=== PATIENT | female | born 1945 | race Caucasian/White ===

== ENCOUNTER → 2020-01-14 | Outpatient (CLI) | payer MEDICARE, OTHER ==
[~2020-01-14] MED LIST: ACET325 PO; ACYC200 PO; ALLEGRA; ALLEGRA ALLERG180 M1 PO; ALPR.5CR PO; AMLO10 PO; ATEN25 PO; ATENOLOL; ATOR20 PO; CYAN500 PO; DIOVAN HCT; ERGO400 PO; ESTR2 PO; ESTRODIAL; GABA300 PO; MAGOXI400 PO; METF500 PO; ONDA4ODT MM; PANT40 PO; POTCHL10ER PO; SERT25 PO; SIMV40 PO; VALS80 PO; VYTORIN; [UNRECOGNIZED DRUG - OTHER]
== END ==
LOC: PLD 08:06 → LAB SHORT 08:06
DX: C44.319 Basal cell carcinoma of skin of other parts of face (principal)
CPT/HCPCS: 88305

== ENCOUNTER → 2020-02-10 | Outpatient (CLI) | payer MEDICARE, OTHER | END | disposition home or self-care (01) | LOC: PLD 15:22 → LAB SHORT 15:22 | DX: C44.319 Basal cell carcinoma of skin of other parts of face (principal) | CPT/HCPCS: 88305 ==

== ENCOUNTER 2020-10-15 09:10 | Day surgery (SDC) | payer MEDICARE, OTHER ==
[~2020-10-15] VITALS: Ht 165.1 cm; Wt 94.8 kg
[2020-10-15] MEDS ORDERED: INSULIN AS100 UNIT/8 SC (09:36)
[2020-10-15] MEDS ORDERED: METF500 PO (09:37)
[2020-10-15] MEDS ORDERED: BASAGLAR K100 UNIT/3 SC (09:37)
--- NOTE | 2020-10-15 09:42 | NUR ---
10/15/20 0942 Nevaeh Gaffney ([place] MENSAHET IN AT 0912.
== END 2020-10-15 11:00 | disposition home or self-care (01) ==
LOC: ORSCSDS 09:10
PROVIDERS: Ophthalmology
PROC: 08RK3JZ Replacement of Left Lens with Synthetic Substitute, Percutaneous Approach (ICD-10-PCS; principal; 2020-10-15 10:30)
DX: H25.12 Age-related nuclear cataract, left eye (principal); I10 Essential (primary) hypertension; F17.210 Nicotine dependence, cigarettes, uncomplicated; E11.9 Type 2 diabetes mellitus without complications; Z79.4 Long term (current) use of insulin; Z79.899 Other long term (current) drug therapy
CPT/HCPCS: 82947; J2001; J2250; J3010; J3301; J7040; V2632

== ENCOUNTER → 2021-09-03 | Outpatient (CLI) | payer MEDICARE, OTHER ==
[~2021-09-03] MED LIST changes: +BASAGLAR K100 UNIT/3 SC; +INSULIN AS100 UNIT/8 SC
[2021-09-03 17:18] LABS: Creatinine, Urine Random 61.2 mg/dL (27.00-270.00); Microalb/Creat Ratio UR, Rand 284.314 mg/g (0.000-30.000)
== END | disposition home or self-care (01) ==
LOC: LAB 14:05 → LAB SHORT 14:05
PROVIDERS: Family Medicine
DX: I10 Essential (primary) hypertension (principal); E78.5 Hyperlipidemia, unspecified; E11.65 Type 2 diabetes mellitus with hyperglycemia
CPT/HCPCS: 82043; 82570

== ENCOUNTER → 2021-09-06 | Outpatient (CLI) | payer MEDICARE, OTHER | END | disposition home or self-care (01) | LOC: LAB SHORT 17:08 → LAB 17:08 | DX: R30.9 Painful micturition, unspecified (principal) | CPT/HCPCS: 87077; 87086; 87186 ==

== ENCOUNTER → 2022-05-09 | Outpatient (CLI) | payer MEDICARE, OTHER ==
[2022-05-12 12:10] LABS: HPV 16 Negative (Negative); HPV 18 Negative (Negative); HPV OTHER HR TYPES Negative (Negative)
== END ==
LOC: LAB 10:19 → LAB SHORT 10:19
PROVIDERS: Obstetrics & Gynecology
DX: Z01.419 Encounter for gynecological examination (general) (routine) without abnormal findings (principal)
CPT/HCPCS: 87624; G0145

== ENCOUNTER → 2022-05-09 | Outpatient (CLI) | payer MEDICARE, OTHER | END | disposition home or self-care (01) | LOC: LAB SHORT 13:02 → PLD 13:02 | DX: C54.1 Malignant neoplasm of endometrium (principal) | CPT/HCPCS: 88305; 88342 ==

== ENCOUNTER 2022-08-01 06:05 | Day surgery (SDC) | payer MEDICARE, OTHER ==
[2022-08-01] VITALS (8 sets, daily range): BP systolic 93–150; BP diastolic 67–79
[~2022-08-01] VITALS: Ht 165.1 cm; Wt 87.8 kg
--- NOTE | 2022-08-01 07:26 | NUR ---
Ambulatory in Day Surgery, WITH STEADY GAIT. History, Chart, Medications and Allergies reviewed before start of procedure. Lungs clear T/O to Auscultation. Patient confirms NPO status and agrees with scheduled surgery. Pre-Op teaching done. Pt verbalizes understanding. Patient States Post-Procedure ride home has been arranged WITH [facility].
--- NOTE | 2022-08-01 08:39 | NUR ---
PT WITH ROLL CUTTING OPERATOR TO IMAGING FOR POST OP CHEST XRAY.
--- NOTE | 2022-08-01 08:39 | NUR ---
REPORTED TO ALON [facility], NO POST PROCEDURE XRAY DONE YET.
--- NOTE | 2022-08-01 09:15 | NUR ---
Patient up to Ambulate independently. Gait steady STAND BY ASSIST RELATED TO INCREASED FALL RISK FROM ANESTHESIA. Discharge instructions reviewed with patient. Patient verbalizes understanding. Copy given to patient to take home.ICE PACK GIVEN.PAIN RX IN DISCHARGE FOLDER WITH .DRESSINGS REMAIN CDI. Discharged via wheelchair to private car for ride home WITH
== END 2022-08-01 09:16 | disposition home or self-care (01) ==
LOC: ORSCMMR 06:05 → ORD 07:30 → ORSCMMR 07:30 → ORD 10:00 → ORSCMMR 10:00
PROVIDERS: Surgery
PROC: B543ZZA Ultrasonography of Right Jugular Veins, Guidance (ICD-10-PCS; principal; 2022-08-01 07:30)
PROC: 0JH63WZ Insertion of Totally Implantable Vascular Access Device into Chest Subcutaneous Tissue and Fascia, Percutaneous Approach (ICD-10-PCS; principal; 2022-08-01 07:30)
PROC: 05HM33Z Insertion of Infusion Device into Right Internal Jugular Vein, Percutaneous Approach (ICD-10-PCS; principal; 2022-08-01 07:30)
DX: C54.8 Malignant neoplasm of overlapping sites of corpus uteri (principal); I10 Essential (primary) hypertension; E11.9 Type 2 diabetes mellitus without complications; Z87.891 Personal history of nicotine dependence; K21.9 Gastro-esophageal reflux disease without esophagitis; Z79.4 Long term (current) use of insulin; Z79.899 Other long term (current) drug therapy; Z79.84 Long term (current) use of oral hypoglycemic drugs
CPT/HCPCS: 77001; 82947; 93005; 93010; C1788; J0690; J1100; J1642; J1790; J1885; J2370; J2405; J2704; J3010; J7120

== ENCOUNTER → 2022-11-24 | Outpatient (CLI) | payer MEDICARE, OTHER | END | disposition home or self-care (01) | LOC: LAB SHORT 13:32 → LAB 13:32 | DX: R30.9 Painful micturition, unspecified (principal) | CPT/HCPCS: 87077; 87086; 87186 ==

== ENCOUNTER → 2023-05-22 | Outpatient (CLI) | payer MEDICARE, OTHER ==
[2023-05-22 13:19] LABS: BASOPHILS ABSOLUTE AUTO 0.03 K/mm3 (0.00-0.23); BASOPHILS PERCENT AUTO 0 % (0-2); EOSINOPHILS ABSOLUTE AUTO 0.08 K/mm3 (0.00-0.68); EOSINOPHILS PERCENT AUTO 1 % (0-6); Hematocrit 35.7 % (33.0-51.0); Hemoglobin 11.4 g/dL (11.5-16.0); IMMATURE GRAN ABSOLUTE AUTO 0.01 K/mm3 (0.00-0.10); IMMATURE GRAN PERCENT AUTO 0 % (0-1); LYMPHOCYTES ABSOLUTE AUTO 1.64 K/mm3 (0.84-5.20); LYMPHOCYTES PERCENT AUTO 23 % (21-46); MONOCYTES ABSOLUTE AUTO 0.46 K/mm3 (0.16-1.47); MONOCYTES PERCENT AUTO 6 % (4-13); Mean Corpuscular HGB 28.9 pg (26.0-34.0); Mean Corpuscular HGB Conc 31.9 g/dL (31.5-36.5); Mean Corpuscular Volume 90 fL (80-100); Mean Platelet Volume 10.2 fL (9.1-12.4); NEUTROPHILS ABSOLUTE AUTO 5.03 K/mm3 (1.96-9.15); NEUTROPHILS PERCENT AUTO 70 % (41-73); Platelet Count 213 K/mm3 (150-400); RDW Coefficient Variation 14.2 % (11.7-14.2); RDW Standard Deviation 47.6 fL (35.1-46.3); Red Blood Cell Count 3.95 M/mm3 (3.80-5.20); White Blood Cell Count 7.25 K/mm3 (4.00-11.30)
[2023-05-22 13:32] LABS: Albumin, Blood 3.3 g/dL (3.4-5.0); Bilirubin, Total 0.7 mg/dL (0.1-1.0); Bun/Creatinine Ratio 12.8 (12.0-20.0); Calcium, Blood 8.6 mg/dL (8.5-10.1); Creatinine, Blood 1.17 mg/dL (0.40-1.00); Globulin, Blood 3.3 g/dL (2.2-4.0); Potassium, Blood 4.1 mmol/L (3.5-5.5); Total Protein, Blood 6.6 g/dL (6.4-8.2)
== END | disposition home or self-care (01) ==
LOC: LAB SHORT 13:13
PROVIDERS: Physician Assistant
DX: R10.11 Right upper quadrant pain (principal)
CPT/HCPCS: 80053; 82150; 83690; 85025

== ENCOUNTER 2023-07-03 07:38 | Day surgery (SDC) | payer MEDICARE, OTHER ==
[2023-07-03] VITALS (10 sets, daily range): BP systolic 105–150; BP diastolic 68–91
[~2023-07-03] VITALS: Ht 165.1 cm; Wt 96.3 kg
[~2023-07-03 07:38] MED LIST changes: +ATENOLOL25 MG PO; +CIPR500 PO; +DECADRON4 M1 PO; +HYDR1TAB94; +HYDR1TAB94 PO; +LANTUS SOL100 UNIT/1 SC; +METFORMIN HCL500 M2 PO; +NEURONTIN300 MG; +NYST237S MT; +PANTOPRAZOLE SO40 M2 PO; +Revlimid5 MG PO; +Velcade3.5 MG IV; +ZOLOFT10013 PO; +[UNRECOGNIZED DRUG - OTHER] PO
[2023-07-03] MEDS ORDERED: Lactated Ringer's 1,000 ML IV SCH (07:40)
--- NOTE | 2023-07-03 08:26 | NUR ---
History, Chart, Medications and Allergies reviewed before start of procedure.Patient confirms NPO status and agrees with scheduled surgery. Lungs clear T/O to Auscultation. Patient reports completing Chlorhexadine shower X2 prior to admission to hospital.Patient States Post-Procedure ride home has been arranged.
[2023-07-03] MEDS ORDERED: Lidocaine HCl 1% 30 ML SDV ONE (09:21)
[2023-07-03] MEDS ORDERED: CeFAZolin Sodium 2,000 MG in NS 100 ML IV SCH (09:30)
[2023-07-03] MEDS ORDERED: propofoL 20 ML IV ONE (09:44)
[2023-07-03] MEDS ORDERED: Dexamethasone Sod Phos 10 MG/ML 1ML VIAL ONE (09:44)
[2023-07-03] MEDS ORDERED: Phenylephrine HCl 100 MCG/ML-NS 10MLSYR (1MG/10ML) ONE (09:44)
[2023-07-03] MEDS ORDERED: Rocuronium Bromide 10 MG/ML 5ML Injection IV ONE (09:44)
[2023-07-03] MEDS ORDERED: Ondansetron HCl 2 MG / ML 2ML Vial ONE (09:44)
[2023-07-03] MEDS ORDERED: FentaNYL Citrate 50 MCG/ML 2 ML Injection ONE (09:45)
[2023-07-03] MEDS ORDERED: Sugammadex Sodium 200 MG/2ML SDV (100 MG/ML) ONE (10:19)
[2023-07-03] MEDS ORDERED: HYDROcodone 5-APAP 325 TAB PO PRN (11:35)
--- NOTE | 2023-07-03 12:01 | NUR ---
PT SLIGHTLY UNSTEADY ON FEET. DENIES FEELING DIZZY, STATES " MY LEGS DON'T WORK B/C OF ALL THE FLUID IN THEM". PT ABLE TO TRANSFER TO W/C W/ SB ASSIST AND STATES SHE HAS A CANE FOR BALANCE IN THE CAR. Discharge instructions reviewed with patient. Patient verbalizes understanding. Copy given to patient to take home. Discharged via wheelchair to private car for ride home.
== END 2023-07-03 12:01 | disposition home or self-care (01) ==
LOC: ORSCMMR 07:38 → ORD 09:00 → ORSCMMR 09:00
PROVIDERS: Surgery
PROC: 0JH60WZ Insertion of Totally Implantable Vascular Access Device into Chest Subcutaneous Tissue and Fascia, Open Approach (ICD-10-PCS; principal; 2023-07-03 09:00)
DX: C54.8 Malignant neoplasm of overlapping sites of corpus uteri (principal); I10 Essential (primary) hypertension; K21.9 Gastro-esophageal reflux disease without esophagitis; E11.9 Type 2 diabetes mellitus without complications; E78.5 Hyperlipidemia, unspecified; J45.909 Unspecified asthma, uncomplicated; E66.9 Obesity, unspecified; Z68.35 Body mass index [BMI] 35.0-35.9, adult; Z79.84 Long term (current) use of oral hypoglycemic drugs; Z79.899 Other long term (current) drug therapy; Z87.891 Personal history of nicotine dependence
CPT/HCPCS: 77001; 82947; A9270; C1788; J0690; J1100; J1642; J2371; J2405; J2704; J3010; J7120

== ENCOUNTER 2023-07-28 14:46 | Day surgery (SDC) | payer MEDICARE, OTHER | END 2023-07-28 22:54 | disposition home or self-care (01) | LOC: US 14:46 | DX: C54.8 Malignant neoplasm of overlapping sites of corpus uteri (principal) | CPT/HCPCS: 49083 ==

== ENCOUNTER 2023-08-04 14:39 | Day surgery (SDC) | payer MEDICARE, OTHER | END 2023-08-04 22:35 | disposition home or self-care (01) | LOC: US 14:39 | DX: R18.8 Other ascites (principal); C54.8 Malignant neoplasm of overlapping sites of corpus uteri ==

== ENCOUNTER 2023-09-08 10:34 | Day surgery (SDC) | payer MEDICARE, OTHER | END 2023-09-08 22:41 | disposition home or self-care (01) | LOC: US 10:34 | DX: R18.8 Other ascites (principal); C54.8 Malignant neoplasm of overlapping sites of corpus uteri; Z88.2 Allergy status to sulfonamides | CPT/HCPCS: 49083 ==

== ENCOUNTER 2023-09-15 12:37 | Emergency (ER) | payer MEDICARE, OTHER ==
[~2023-09-15] VITALS: Ht 165.1 cm; Wt 88.5 kg
[2023-09-15] MEDS ORDERED: OCUVITE BLUE L1 EACH (12:50)
[2023-09-15] MEDS ORDERED: ONDA4ODT (12:50)
[2023-09-15] MEDS ORDERED: THERA-D2000 UNIT PO (12:51)
[2023-09-15] MEDS ORDERED: NOVOLOG100 UNIT/2 (12:51)
[2023-09-15] MEDS ORDERED: NS 1,000 ML IV SCH (12:55)
[2023-09-15 13:31] LABS: BASOPHILS ABSOLUTE AUTO 0.02 K/mm3 (0.00-0.23); BASOPHILS PERCENT AUTO 1 % (0-2); EOSINOPHILS ABSOLUTE AUTO 0.01 K/mm3 (0.00-0.68); EOSINOPHILS PERCENT AUTO 0 % (0-6); Hematocrit 30.7 % (33.0-51.0); Hemoglobin 9.8 g/dL (11.5-16.0); IMMATURE GRAN ABSOLUTE AUTO 0.03 K/mm3 (0.00-0.10); IMMATURE GRAN PERCENT AUTO 1 % (0-1); LYMPHOCYTES PERCENT AUTO 20 % (21-46); MONOCYTES PERCENT AUTO 5 % (4-13); Mean Corpuscular HGB 28.5 pg (26.0-34.0); Mean Corpuscular HGB Conc 31.9 g/dL (31.5-36.5); Mean Corpuscular Volume 89 fL (80-100); Mean Platelet Volume 9.8 fL (9.1-12.4); NEUTROPHILS ABSOLUTE AUTO 2.97 K/mm3 (1.96-9.15); NEUTROPHILS PERCENT AUTO 74 % (41-73); Platelet Count 382 K/mm3 (150-400); RDW Coefficient Variation 18.6 % (11.7-14.2); RDW Standard Deviation 58.3 fL (35.1-46.3); Red Blood Cell Count 3.44 M/mm3 (3.80-5.20); White Blood Cell Count 4.03 K/mm3 (4.00-11.30)
[2023-09-15 13:55] LABS: Albumin, Blood 1.5 g/dL (3.4-5.0); Albumin/Globulin Ratio 0.3 (0.8-1.8); Bilirubin, Total 0.5 mg/dL (0.1-1.0); Bun/Creatinine Ratio 20.3 (12.0-20.0); Calcium, Blood 8.5 mg/dL (8.5-10.1); Creatinine, Blood 1.43 mg/dL (0.40-1.00); Globulin, Blood 4.4 g/dL (2.2-4.0); Magnesium, Blood 1.6 mg/dL (1.6-2.4); Potassium, Blood 4.3 mmol/L (3.5-5.5); Total Protein, Blood 5.9 g/dL (6.4-8.2)
[2023-09-15] MEDS ORDERED: ONDA4ODT MM (16:15)
[2023-09-15 17:07] VITALS: BP 95/56
== END 2023-09-15 17:08 | disposition home or self-care (01) ==
LOC: ER 12:37
PROVIDERS: Emergency Medicine
DX: K52.9 Noninfective gastroenteritis and colitis, unspecified (principal); E86.1 Hypovolemia; R18.8 Other ascites; E11.9 Type 2 diabetes mellitus without complications; I10 Essential (primary) hypertension; Z87.891 Personal history of nicotine dependence
CPT/HCPCS: 49083; 80053; 83605; 83735; 85025; 99284-25; J7030

== ENCOUNTER 2023-09-17 06:46 | Emergency (ER) | payer MEDICARE, OTHER ==
[~2023-09-17] VITALS: Ht 165.1 cm; Wt 88.5 kg
[~2023-09-17 06:46] MED LIST changes: +NOVOLOG100 UNIT/2; +OCUVITE BLUE L1 EACH; +ONDA4ODT; +THERA-D2000 UNIT PO
[2023-09-17] MEDS ORDERED: NS 1,000 ML IV SCH ×2 (07:05→10:00)
[2023-09-17] MEDS ORDERED: Metoclopramide HCl 5MG / ML 2ML Vial IV ONE (07:05)
[2023-09-17 07:44] LABS: BASOPHILS PERCENT AUTO 0 % (0-2); EOSINOPHILS PERCENT AUTO 0 % (0-6); Hematocrit 29.5 % (33.0-51.0); Hemoglobin 9.6 g/dL (11.5-16.0); IMMATURE GRAN ABSOLUTE AUTO 0.04 K/mm3 (0.00-0.10); IMMATURE GRAN PERCENT AUTO 1 % (0-1); LYMPHOCYTES ABSOLUTE AUTO 0.51 K/mm3 (0.84-5.20); LYMPHOCYTES PERCENT AUTO 14 % (21-46); MONOCYTES ABSOLUTE AUTO 0.28 K/mm3 (0.16-1.47); MONOCYTES PERCENT AUTO 8 % (4-13); Mean Corpuscular HGB Conc 32.5 g/dL (31.5-36.5); Mean Corpuscular Volume 89 fL (80-100); Mean Platelet Volume 10.1 fL (9.1-12.4); NEUTROPHILS ABSOLUTE AUTO 2.76 K/mm3 (1.96-9.15); NEUTROPHILS PERCENT AUTO 77 % (41-73); Platelet Count 273 K/mm3 (150-400); RDW Coefficient Variation 18.7 % (11.7-14.2); RDW Standard Deviation 58.9 fL (35.1-46.3); Red Blood Cell Count 3.31 M/mm3 (3.80-5.20); White Blood Cell Count 3.59 K/mm3 (4.00-11.30)
[2023-09-17 08:04] LABS: Albumin, Blood 1.2 g/dL (3.4-5.0); Albumin/Globulin Ratio 0.3 (0.8-1.8); Bilirubin, Direct 0.1 mg/dL (0.0-0.3); Bilirubin, Indirect 0.4 mg/dL (0.1-0.7); Bilirubin, Total 0.5 mg/dL (0.1-1.0); Calcium, Blood 7.8 mg/dL (8.5-10.1); Creatinine, Blood 1.05 mg/dL (0.40-1.00); Magnesium, Blood 1.4 mg/dL (1.6-2.4); Potassium, Blood 4.3 mmol/L (3.5-5.5); Total Protein, Blood 5.2 g/dL (6.4-8.2)
[2023-09-17] MEDS ORDERED: CALCIUM GLUC IN NACL, ISO-OSM 100 ML IV ONE (08:45)
[2023-09-17] MEDS ORDERED: Magnesium Sulf 2 GM/Water 50ML 50 ML IV ONE (08:45)
[2023-09-17 08:54] LABS: Influenza A, PCR NEGATIVE (NEGATIVE); Influenza B, PCR NEGATIVE (NEGATIVE); Resp Syncytial Virus, PCR NEGATIVE (NEGATIVE); SARS-Cov-2 (COVID-19) PCR, MMC NEGATIVE (NEGATIVE)
[2023-09-17] MEDS ORDERED: Diphenoxylat/Atrop 2.5 / 0.025MG 1 Tab PO ONE (10:20)
[2023-09-17 11:51] LABS: Source, Urine Clean Catch
[2023-09-17 11:56] LABS: Appearance, Urine Clear (Clear); Bilirubin, Urine Neg (Neg); Blood, Urine Neg (Neg); Color, Urine Yellow (P-Yellow); Glucose Qualitative, Urine Neg (Neg); Ketones, Urine 2+ (Neg); Leukocyte Esterase, Urine Neg (Neg); Nitrite, Urine Neg (Neg); Protein, Urine 1+ (Neg); Urobilinogen, Urine NORM (Normal)
[2023-09-17] MEDS ORDERED: PROM12.5S PR (12:29)
[2023-09-17] MEDS ORDERED: METO10 PO (12:29)
[2023-09-17 12:30] VITALS: BP 133/70
[2023-09-17] MEDS ORDERED: Diflucan150 MG PO (12:44)
== END 2023-09-17 13:07 | disposition home or self-care (01) ==
LOC: ER 06:46
PROVIDERS: Student in an Organized Health Care Education/Training Program
DX: R11.2 Nausea with vomiting, unspecified (principal); R19.7 Diarrhea, unspecified; E86.0 Dehydration; E83.42 Hypomagnesemia; E83.51 Hypocalcemia; N18.9 Chronic kidney disease, unspecified; C78.6 Secondary malignant neoplasm of retroperitoneum and peritoneum; Z88.2 Allergy status to sulfonamides; Z79.899 Other long term (current) drug therapy; Z79.84 Long term (current) use of oral hypoglycemic drugs; Z79.4 Long term (current) use of insulin; E11.9 Type 2 diabetes mellitus without complications; I10 Essential (primary) hypertension; Z87.891 Personal history of nicotine dependence
CPT/HCPCS: 0241U; 71045; 74177; 80048; 80076; 83690; 83735; 85025; 93005; 93010; 96361; 96365-59; 96375; 99285-25; A9270; J0612; J2765; J3475; J7030; Q9967

== ENCOUNTER 2023-09-21 14:36 | Day surgery (SDC) | payer MEDICARE, OTHER ==
[~2023-09-21 14:36] MED LIST changes: +Diflucan150 MG PO; +METO10 PO; +PROM12.5S PR
== END 2023-09-21 22:44 | disposition home or self-care (01) ==
LOC: US 14:36
DX: C54.8 Malignant neoplasm of overlapping sites of corpus uteri (principal); R18.0 Malignant ascites
CPT/HCPCS: 49083

== ENCOUNTER 2023-09-27 14:41 | Day surgery (SDC) | payer MEDICARE, OTHER | END 2023-09-27 15:00 | disposition home or self-care (01) | LOC: US 14:41 → SURS 14:42 → US 15:00 | DX: C54.8 Malignant neoplasm of overlapping sites of corpus uteri (principal); R18.0 Malignant ascites | CPT/HCPCS: 49083 ==

== ENCOUNTER 2023-10-05 09:30 | Observation (INO) | payer OTHER, MEDICARE ==
[~2023-10-05] VITALS: Ht 165.1 cm; Wt 79.5 kg
[2023-10-05] VITALS (10 sets, daily range): BP systolic 106–127; BP diastolic 69–82
--- NOTE | 2023-10-05 12:20 | NUR ---
PT IN TO SDS BY W/C WITH GAIT BELT. ASSISTED WITH GETTING DRESSED BY FEMALE RN WHO ALSO COMPLETED CLEANSING WIPE. History, Chart, Medications and Allergies reviewed before start of procedure.Lungs clear T/O to Auscultation. Patient confirms NPO status and agrees with scheduled surgery. Pre-Op teaching done. Pt verbalizes understanding. Patient States Post-Procedure ride home has been arranged.
[2023-10-05] MEDS ORDERED: CeFAZolin Sodium 2,000 MG in NS 100 ML IV SCH (12:40)
[2023-10-05] MEDS ORDERED: Lactated Ringer's 1,000 ML IV SCH (12:40)
--- NOTE | 2023-10-05 12:55 | NUR ---
PT'S W/C AND BELONGINGS TO ROOM ENDO 1
[2023-10-05] MEDS ORDERED: Lidocaine HCl 1% 30 ML SDV ONE (12:59)
[2023-10-05] MEDS ORDERED: Bupivacaine 0.5% Inj 50 ML Vial ONE (12:59)
[2023-10-05] MEDS ORDERED: FentaNYL Citrate 50 MCG/ML 2 ML Injection ONE (13:16)
[2023-10-05] MEDS ORDERED: propofoL 20 ML IV ONE (13:16)
[2023-10-05] MEDS ORDERED: Sugammadex Sodium 200 MG/2ML SDV (100 MG/ML) ONE (13:16)
[2023-10-05] MEDS ORDERED: ePHEDrine Sulfate 50 MG/ML 1ML Injection ONE (13:26)
[2023-10-05] MEDS ORDERED: HYDROcodone 5-APAP 325 TAB PO PRN (14:35)
--- NOTE | 2023-10-05 15:54 | NUR ---
Discharge instructions reviewed with patient. Patient verbalizes understanding. Copy given to patient to take home. Dressing c/d/i. Pleurx starter kit sent with pt. Pt stated an apt with home health nurse tomorrow. Pt arranged ride home with ambulance service. Discharged via pt's wheelchair.
== END 2023-10-07 06:35 | disposition home or self-care (01) ==
LOC: PRE IP 09:30 → SURS 11:18 → PRE IP 11:18 → SURS 11:32
PROVIDERS: ADMIT Surgery
PROC: 0WHB33Z Insertion of Infusion Device into Left Pleural Cavity, Percutaneous Approach (ICD-10-PCS; principal; 2023-10-05 12:15)
DX: C54.1 Malignant neoplasm of endometrium (principal); R18.0 Malignant ascites; I10 Essential (primary) hypertension; E11.9 Type 2 diabetes mellitus without complications; Z79.4 Long term (current) use of insulin; Z79.899 Other long term (current) drug therapy; Z88.2 Allergy status to sulfonamides; Z87.891 Personal history of nicotine dependence
CPT/HCPCS: 82947; C1729; J0690; J2704; J3010; J7120